=== PATIENT | female | born 1995 | race Caucasian/White ===

== ENCOUNTER 2019-01-04 15:04 | Emergency (ER) | payer OTHER ==
[2019-01-04] MEDS ORDERED: LEVOTHYROXIN100 MCG PO (15:11)
[2019-01-04 16:24] VITALS: BP 154/94
== END 2019-01-04 16:25 | disposition home or self-care (01) ==
LOC: ED 15:04
DX: T63.421A Toxic effect of venom of ants, accidental (unintentional), initial encounter (principal); E03.9 Hypothyroidism, unspecified

== ENCOUNTER 2019-01-10 11:46 | Emergency (ER) | payer OTHER ==
[~2019-01-10] VITALS: Ht 167.6 cm; Wt 94.0 kg
[~2019-01-10 11:46] MED LIST: LEVOTHYROXIN100 MCG PO
[2019-01-10] MEDS ORDERED: CETIRIZINE10 MG PO (12:00)
[2019-01-10] MEDS ORDERED: PIRMELLA 7/7/71 TAB PO (12:00)
[2019-01-10] MEDS ORDERED: AMOXICILLIN875 MG PO (12:15)
[2019-01-10] MEDS ORDERED: ANTIVERT PO (12:15)
[2019-01-10 12:20] VITALS: BP 130/79
== END 2019-01-10 12:20 | disposition home or self-care (01) ==
LOC: ED 11:46
DX: H65.91 Unspecified nonsuppurative otitis media, right ear (principal); R42 Dizziness and giddiness; E03.9 Hypothyroidism, unspecified

== ENCOUNTER 2019-04-08 | Emergency (ER) | payer OTHER ==
[~2019-04-08] MED LIST changes: +AMOXICILLIN875 MG PO; +ANTIVERT PO; +CETIRIZINE10 MG PO; +PIRMELLA 7/7/71 TAB PO
[2019-04-08 18:58] LABS: HEMOGLOBIN 15.7 g/dl (12.0-16.0); IMMATURE GRANULOCYTES 0.3 % (0.0-5.0); MEAN CELL VOLUME 92.2 fL CALC (80.0-100.0); MEAN CORPUSCULAR HGB 29.7 pG CALC (26.0-32.0); MEAN CORPUSCULAR HGB CONC 32.2 g/L CALC (32.0-36.0); NEUT# 5.44 thou/uL (2.00-7.15); RED BLOOD COUNT 5.28 mill/uL (4.20-5.60); RED CELL DISTRI WIDTH 12.2 % (11.5-15.5)
[2019-04-08 19:01] LABS: HEMATOCRIT 48.7 % (37.0-47.0)
[2019-04-08 19:18] LABS: ALBUMIN 4.7 g/dL (3.2-5.0); ALKALINE PHOSPHATASE 99 u/l (38-126); BILIRUBIN, TOTAL 0.5 mg/dL (0.0-1.4); BUN 11 mg/dL (7-17); BUN/CREATININE RATIO 16 (12-20 (CALC)); CHLORIDE 105 mmol/l (95-108); CREATININE 0.7 mg/dL (0.5-1.0); GFR > 60 ML/MIN (>=60 (CALC)); GFR FOR AFR.AMER. > 60 ML/MIN (>=60 (CALC)); LIPASE 54 u/l (23-300); POTASSIUM 4.7 mmol/l (3.5-5.1); SGOT/AST 33 u/l (14-36); SODIUM 138 mmol/l (137-146); TOTAL PROTEIN 8.1 g/dL (6.3-8.2)
[2019-04-08 19:21] LABS: ANION GAP 18 (6-22 (CALC)); CARBON DIOXIDE 20 mmol/l (22-30)
[2019-04-08 19:25] LABS: URINE BILIRUBIN - DIPSTICK NEGATIVE (NEGATIVE); URINE BLOOD DIPSTICK SMALL (NEGATIVE); URINE COLOR YELLOW; URINE GLUCOSE - DIPSTICK NEGATIVE (NEGATIVE); URINE KETONE NEGATIVE (NEGATIVE); URINE LEUK ESTERASE TRACE (NEGATIVE); URINE PH 5.5 (4.5-8.0); URINE PROTEIN - DIPSTICK NEGATIVE (NEG-TRACE); URINE SPECIFIC GRAVITY >=1.030; URINE UROBILINOGEN - DIPSTICK 0.2 E.U./dL (0.2)
[2019-04-08 19:27] LABS: URINE NITRITE - DIPSTICK POSITIVE (Negative)
[2019-04-08 19:33] LABS: URINE SQUAMOUS EPITHELIAL CELL FEW EPI/hpf (0-FEW)
[2019-04-08] MEDS ORDERED: LOMOTIL2.5 MG PO (19:40)
== END 2019-04-08 19:59 | disposition home or self-care (01) ==
PROVIDERS: Family Medicine
DX: A08.4 Viral intestinal infection, unspecified (principal); E03.9 Hypothyroidism, unspecified

== ENCOUNTER 2022-08-24 06:56 | Emergency (ER) | payer OTHER ==
[~2022-08-24] VITALS: Ht 167.6 cm; Wt 109.2 kg
[~2022-08-24 06:56] MED LIST changes: +LOMOTIL2.5 MG PO
[2022-08-24 07:05] VITALS: BP 130/94
[2022-08-24] MEDS ORDERED: SIMVASTATIN10 MG PO (07:19)
[2022-08-24 08:00] VITALS: BP 130/94
== END 2022-08-24 08:00 | disposition home or self-care (01) ==
LOC: ED 06:56
DX: M79.645 Pain in left finger(s) (principal); E03.9 Hypothyroidism, unspecified